=== PATIENT | female | born 1985 ===

== ENCOUNTER → 2019-10-05 | Emergency (ER) ==
--- OUTSIDE RECORDS SUMMARY | 2019-10-05 12:07 | XMS REPORT | Continuity of Care Document ---
Author Author [facility] Organization [facility] Address Unknown Phone Unavailable Care Team Providers Care Sap Basis Architect Name Role Phone Leona Tirado LPC Unavailable Unavailable Allergies, Adverse Reactions, Alerts Substance Reaction Status PENICILLIN Active Medications Medication Instructions Dosage Effective Dates (start - stop) Status Comments Vyvanse 50 mg capsule take 1 capsule by oral route every day in the morning 50 MG - Active [Pat Resp=0 pct;] Problems Condition Effective Dates (start - stop) Clinical Status Comments No information Procedures Procedure Date No information Results Test Name Date and Time Measure Units Reference Range Abnormal Flag Status Comments No information Advance Directives Directive Yes / No Effective Date File Name No information Encounters Encounter Description Practice Location Reason(s) For Visit Diagnoses Date Provider Providers Copied on Encounter [facility], [address], [place], [place], [address], tel:[phone] [facility] Celestino Leona. [address], [address], [place], [place], [address]. tel:[phone] Referring Provider: Tasneem Yeh [address], [place], [place], [address]. tel:[phone] [facility], [address], [place], [place], [address], tel:[phone] [facility] Dysmenorrhea Jaguar Manning. [address], [address], [place], [place], [address]. tel:[phone] Referring Provider: Tasneem Yehry [address], [place], [place], [address]. tel:[phone] [facility], [address], [place], [place], [address], [place] tel:[phone] [facility] Other microscopic hematuria Juhi Osborne. [address] [facility], [address], [place], [place], [address]. tel:[phone] Referring Provider: Tasneem Dumont [address], [place], [place], [address]. tel:[phone] [facility], [address], [place], [place], [address], [place] tel:[phone] [facility] Body mass index (BMI) 31.0-31.9, adultDysuriaOther microscopic hematuria Juhi Osborne. Tasneem Villar [address] [facility], [address], [place], [place], [address]. tel:[phone] Referring Provider: Tasneem Dumont [address], [place], [place], [address]. tel:[phone] [facility], [address], [place], [place], [address], [place] tel:[phone] [facility] Body mass index (BMI) 31.0-31.9, adultWell woman exam w/o abnormal findingEncounter for STD screeningOther specified noninflammatory disorders of vagina Juhi Osborne. Tasne[address] Villar [address] [facility], [address], [place], [place], [address]. tel:[phone] Referring Provider: Tasneem Dumont [address] [place] [facility] [address], [place], [place], [address]. tel:[phone] [facility], [address], [place], [place], [address], [place] tel:[phone] [facility] Acute nasopharyngitis [common cold]Body mass index (BMI) 31.0-31.9, adult Feb-13-2018 Juhi Osborne. [address], [address], [place], [place], [address]. tel:[phone] Referring Provider: India Reynaga, [address], [place], [place], [address]. tel:[phone] [facility], [address], [place], [place], [address], tel:[phone] [facility] Body mass index (BMI) 30.0-30.9, adultRight upper quadrant painLow back pain Anne Osorio. [address], [address], [place], [place], [address]. tel:[phone] Referring Provider: Jo Rodríguez, [address], [place], [place], [address]. tel:[phone] [facility], [address], [place], [place], [address], [place] tel:[phone] [facility] VaginitisADHD [facility], [address], [place], [place], [address], [place] tel:[phone] [facility] Trichomonas cervicitisEncounter for STD screeningOther specified noninflammatory disorders of vagina [facility], [address], [place], [place], [address], [place] tel:[phone] [facility] VaginitisEncounter for STD screeningBody mass index (BMI) 31.0-31.9, adult Jan Raya. [address], [address], [place], [place], [address]. tel:[phone] Referring Provider: Elver Montoya, [address], [place], [place], [address]. tel:[phone] [facility], [address], [place], [place], [address], [place] tel:[phone] [facility] Encounter for adult health check-upEncounter for STD screening Marisol Barahona. [address], [address], [place], [place], [address]. tel:[phone] Referring Provider: Jun Damon, [address], [place], [place], [address]. tel:[phone] [facility], [address], [place], [place], [address], [place] tel:[phone] [facility] BronchitisUpper respiratory infectionAbdominal hernia Marisol Barahona. [address], [address], [place], [place], [address]. tel:[phone] Referring Provider: Jun Damon, [address], [place], [place], [address]. tel:[phone] [facility], [address], [place], [place], [address], [place] tel:[phone] [facility] Encounter for STD screening Juhi Osborne. [address], [address], [place], [place], [address]. tel:[phone] Referring Provider: India Reynaga [address], [place], [place], [address]. tel:[phone] [facility], [address], [place], [place], [address], [place] tel:[phone] [facility] Routine Medical Exam Ankur Jiang. [address], [place], [place], [address]. tel:[phone] Referring Provider: Corbin Pascual, [address], [place], [place], [address]. tel:[phone] Family History Family Member Diagnosis Age At Onset Mother Alive and well Close relative Diabetes mellitus type 2 Immunizations Vaccine Date Status Comments No information Payers Payer name Insurance type Covered democrat ID Authorization(s) No information Social History Type Description Quantity Date Captured Comments Sex Female Vital Signs Date / Time: Height Weight BMI Pulse Rate Blood Pressure Temperature Respiratory Rate Body Surface Area Head Circumference BMI percentile Pulse Ox Inhaled Ox No information Chief Complaint And Reason For Visit No information Reason For Referral Reason For Referral No information Plan Of Treatment Date Type Action Status Goal Lifestyle education regarding diet completed Goal Lifestyle education regarding diet completed Goal Dietary management education, guidance, and counseling completed History Of Present Illness Encounter Date Complaint History Of Present Illness No information Functional Status Date Functional Assessment No information Medications Administered Medication Instructions Dosage Effective Dates (start - stop) Status Comments No information Instructions Date Instruction Additional Information Due to severity of Sx pt was advised to go to the ER for further evaluation with a pelvic US Pt expressed understanding and left in a private vehicle for the ER Pt was advised to schedule a follow up in 1 week Related to Dysmenorrhea ddx: UTI, nephrolithiasis Instructed patient if increase in flank pain, development of fever, or urinary retention to seek emergent care. Related to Other microscopic hematuria Will start Macrobid and suggested over the counter AZO.Will have cultures sent.Diflucan because of history of yeast infections with abx treatment.f/u in 1-2 weeks if sx persist or worsen. Related to Dysuria Giving encouragement to exercise Related to Body mass index (BMI) 31.0-31.9, adult Lifestyle education regarding diet Related to Body mass index (BMI) 31.0-31.9, adult Will call pt with lab results. Educated pt on self breast exam techniques and frequency. Discussed that if test results are negative for abnormality, pt is due for next pap in 2-3 years. Related to Well woman exam w/o abnormal finding Discussed STD prevention techniques. Will call pt with lab results. Related to Encounter for STD screening Giving encouragement to exercise Related to Body mass index (BMI) 31.0-31.9, adult Weight loss from baseline weight Related to Body mass index (BMI) 31.0-31.9, adult Continue OTC meds prn, discussed not mixing OTC meds and taking as prescribed. Teslenny perlaminata for cough prn. Discussed increased fluid intake and rest. Discussed not taking incomplete Abx courses in the future. f/u in 1 week if sx persist. Related to Acute nasopharyngitis [common cold] Lifestyle education regarding diet Related to Body mass index (BMI) 31.0-31.9, adult Will get labsWill also obtain RUQ USDiscussed deteriorating/warning signs and ER precuationsWill update patient further plan of action after lab results and US Related to Right upper quadrant pain Tylenol/NSAIDsFlexeril 5 mg BIDLow back exercisesDiscussed deteriorating/warnings signsRTC if no resolution of symptoms after several days Related to Low back pain Dietary needs education Related to Body mass index (BMI) 30.0-30.9, adult Flagyl 2mg x1 given in office.Notify partner he needs tx as well. Avoid intercourse until both treated.RTC if no improvement or recurrence of sx. Related to Trichomonas cervicitis Unprotected intecourse with new partner. Will call with abnormal results. Related to Encounter for STD screening Wet mount with evidence of trichomonas and BV. Treated for both in office. Related to Other specified noninflammatory disorders of vagina Dietary management education, guidance, and counseling Related to Body mass index (BMI) 31.0-31.9, adult Treating for trichomonas/BV based on sx. Pt education given on medication. Abstain from alcohol while on medication. f/u in 2 weeks for full WWE and G/C testing. Related to Encounter for STD screening Assessments Type Assessment Date No information Goals Health Concern Goal Type Priority Status Date No information Medical Equipment Description Device [place] Device Identifier Effective Dates (start - stop) Status No information Mental Status Date Cognitive Assessment No information Health Concerns Observation Date No information Concern Status Date No information
--- OUTSIDE RECORDS SUMMARY | 2019-10-05 12:07 | XMS REPORT ---
[facility] Address Unknown Phone Unavailable Care Team Providers Care Bowling Ball Molder Name Role Phone Unavailable Unavailable Payers Payer Name Policy Type Policy Number Effective Date Expiration Date Problems This patient has no known problems. Allergies, Adverse Reactions, Alerts Allergy Name Allergy Type Status Severity Reaction(s) Onset Date Inactive Date Treating Clinician Comments Penicillins DA Active SV 2013-09-18 00:00:00 Medications This patient has no known medications.
== END | disposition left against medical advice (07) ==
LOC: FSED 12:04
DX: R69 Illness, unspecified (principal)